=== PATIENT | male | born 1965 | race Asian ===

== ENCOUNTER 2016-07-05 18:46 | Emergency (ER) | payer OTHER ==
[~2016-07-05] VITALS: Ht 188 cm; Wt 99.8 kg
[~2016-07-05 18:46] MED LIST: AZIT250T3 PO; DICL1GEL2 TOP; DOCU100C10 PO; LEXAPRO10 MG OR; LIDOPATCH TOP; OXYCONTIN60 MG PO; PERCOCET1 TA3 PO; PREDNISONE5 M1 OR
[2016-07-05 19:51] LABS: PLATELET COUNT 228 K/uL (142-355)
[2016-07-05 20:11] LABS: POTASSIUM 3.5 mmol/L (3.6-5.2); SODIUM 135 mmol/L (136-145)
[2016-07-06 00:29] VITALS: BP 142/85; TEMP 97.8
== END 2016-07-06 00:29 | disposition home or self-care (01) ==
LOC: ED 18:46
PROVIDERS: Emergency Medicine
DX: K85.80 Other acute pancreatitis without necrosis or infection (principal); Z79.899 Other long term (current) drug therapy
CPT/HCPCS: 36415; 80053; 80307; 82150; 82550; 83690; 84484; 85027; 85379; 93005; 96374; 99284; G0479; J1885; Q9963

== ENCOUNTER 2016-08-10 17:32 | Emergency (ER) | payer OTHER ==
[~2016-08-10] VITALS: Ht 188 cm; Wt 106.6 kg
[2016-08-10 17:41] VITALS: TEMP 98
[2016-08-10 18:11] LABS: PLATELET COUNT 185 K/uL (142-355)
[2016-08-10 18:43] LABS: POTASSIUM 3.5 mmol/L (3.6-5.2); SODIUM 131 mmol/L (136-145)
[2016-08-10 18:57] VITALS: BP 140/82
== END 2016-08-10 18:59 | disposition home or self-care (01) ==
LOC: ED 17:32
DX: R10.84 Generalized abdominal pain (principal)
CPT/HCPCS: 36415; 80053; 81000; 85027; 99283

== ENCOUNTER 2016-08-24 15:22 | Emergency (ER) | payer OTHER ==
[~2016-08-24] VITALS: Ht 188 cm; Wt 104.3 kg
[2016-08-24 15:49] VITALS: TEMP 98.7
[2016-08-24 17:31] LABS: POTASSIUM 3.9 mmol/L (3.6-5.2); SODIUM 135 mmol/L (136-145)
[2016-08-24 17:32] LABS: PLATELET COUNT 227 K/uL (142-355)
[2016-08-24 18:18] VITALS: BP 148/98
== END 2016-08-24 18:23 | disposition home or self-care (01) ==
LOC: ED 15:22
PROVIDERS: Emergency Medicine
DX: R10.84 Generalized abdominal pain (principal)
CPT/HCPCS: 36415; 80048; 81000; 85027; 99283

== ENCOUNTER 2016-08-26 15:58 | Outpatient (CLI) | payer OTHER ==
[2016-08-26 16:26] LABS: PLATELET COUNT 218 K/uL (142-355)
[2016-08-26 16:31] LABS: POTASSIUM 3.7 mmol/L (3.6-5.2); SODIUM 134 mmol/L (136-145)
== END 2016-08-26 20:22 | disposition home or self-care (01) ==
LOC: LABW 15:58
PROVIDERS: Internal Medicine Gastroenterology
DX: R10.13 Epigastric pain (principal); R11.0 Nausea; R19.7 Diarrhea, unspecified
CPT/HCPCS: 36415; 80053; 82705; 83690; 85027; 87205; 87328; 87329

== ENCOUNTER 2016-09-15 09:28 | Outpatient (CLI) | payer OTHER | END 2016-09-15 19:12 | disposition home or self-care (01) | LOC: CT 09:28 | DX: R10.13 Epigastric pain (principal); R11.0 Nausea | CPT/HCPCS: Q9963 ==